=== PATIENT | female | born 1980 | race Hispanic/Latino ===

== ENCOUNTER 2017-02-28 22:17 | Inpatient (IN) | payer OTHER ==
--- NOTE | 2017-02-28 22:37 | C.PDOC ---
History Of Present Illness <Catalino Cottrell - Last Filed: 03/01/17 00:21> <Son Oneill - Last Filed: 03/01/17 03:53> 36 year old female presents to the ER via EMS after reportedly being found inside someone else's residence. Patient states she has only slept 6 hour out of the last 4 days which she says is because she has been volunteering a [employer] and taking care of her . Patient reports she has a Hx of depression and anxiety which she thinks affects her. Denies ETOH or substance abuse. (Catalino Cottrell) History Per: Patient History/Exam Limitations: no limitations Onset/Duration Of Symptoms: Days Current Symptoms Are (Timing): Still Present Suicide/Self Injury Attempted (Context): None Modifying Factor(s): None Associated Symptoms: denies: Suicidal Thoughts, Suicidal Plan Involuntary Hold By: None Recent travel outside of the [place]: No <Catalino Cottrell - Last Filed: 03/01/17 00:21> <Son Oneill - Last Filed: 03/01/17 03:53> Time Seen by Provider: 02/28/17 22:27 Chief Complaint (Nursing): Psychiatric Evaluation Past Medical History Reviewed: Historical Data, Nursing Documentation, Vital Signs - Medical History PMH: Anxiety, Depression Surgical History: No Surg Hx Family History: States: Unknown Family Hx - Social History Hx Alcohol Use: No Hx Substance Use: No <Catalino Cottrell - Last Filed: 03/01/17 00:21> Vital Signs: Last Vital Signs Temp 97.9 F 02/28/17 22:24 Pulse 96 H 02/28/17 22:24 Resp 16 02/28/17 22:24 BP 148/84 02/28/17 22:24 Pulse Ox 96 03/01/17 00:21 Review Of Systems Constitutional: Negative for: Fever, Chills Cardiovascular: Negative for: Chest Pain, Palpitations Gastrointestinal: Negative for: Nausea, Vomiting, Abdominal Pain Neurological: Negative for: Weakness, Numbness Psych: Positive for: Other (Disorganized thoughts) <Catalino Cottrell - Last Filed: 03/01/17 00:21> Physical Exam - Physical Exam Appears: Non-toxic, No Acute Distress, Other (Disorganized thoughts) Skin: Normal Color, Warm, Dry Head: Atraumatic, Normacephalic Eye(s): bilateral: Normal Inspection Oral Mucosa: Moist Chest: Symmetrical, No Tenderness Cardiovascular: Rhythm Regular Respiratory: Normal Breath Sounds, No Rales, No Rhonchi, No Wheezing Gastrointestinal/Abdominal: Soft, No Tenderness Neurological/Psych: Oriented x3, Normal Speech, Other (No focal deficits) <Catalino Cottrell P - Last Filed: 03/01/17 00:21> ED Course And Treatment - Laboratory Results Result Diagrams: 02/28/17 22:50 02/28/17 22:50 ECG: Interpreted By Me, Viewed By Me ECG Rhythm: Sinus Rhythm ECG Interpretation: Normal Rate From EC O2 Sat by Pulse Oximetry: 96 (Room air) Pulse Ox Interpretation: Normal <Catalino Cottrell - Last Filed: 03/01/17 00:21> - Laboratory Results Result Diagrams: 02/28/17 22:50 02/28/17 22:50 <Son Oneill - Last Filed: 03/01/17 03:53> Disposition <Catalino Cottrell P - Last Filed: 03/01/17 00:21> Discussed With : Ameena Cole Comment: accepted the pt on her service and took over the care at3:52 AM Doctor Will See Patient In The: Hospital Counseled Patient/Family Regarding: Studies Performed, Diagnosis - Disposition Disposition Time: 01:00 - POA Present On Arrival: Poor Glycemic Control <Son Oneill - Last Filed: 03/01/17 03:53> - Disposition Disposition: HOSPITALIZED Condition: FAIR Forms: Easiaid ([place]) - Clinical Impression Clinical Impression: Bipolar 1 disorder with moderate haylee - Scribe Statement The provider has reviewed the documentation as recorded by the Scribe <Catalino Cottrell P - Last Filed: 03/01/17 00:21> <Son Oneill - Last Filed: 03/01/17 03:53> - Scribe Statement Shahriar Mauricio All medical record entries made by the Scribe were at my direction and personally dictated by me. I have reviewed the chart and agree that the record accurately reflects my personal performance of the history, physical exam, medical decision making, and the department course for this patient. I have also personally directed, reviewed, and agree with the discharge instructions and disposition. (Catalino Cottrell) Decision To Admit <aCtalino Cottrell - Last Filed: 03/01/17 00:21> - Pt Status Changed To: Hospital Disposition Of: Inpatient - Admit Certification Admit to Inpatient:: After my assessment, the patient will require hospitalization for at least two midnights. This is because of the severity of symptoms shown, intensity of services needed, and/or the medical risk in this patient being treated as an outpatient. - InPatient: Physician Admission Certification: I certify that this patient requires 2 or more midnights of care for the following reason:: After my assessment, the patient will require hospitalization for at least two midnights. This is because of the severity of symptoms shown, intensity of services needed, and/or the medical risk in this patient being treated as an outpatient. - . Bed Request Type: Psychiatry Admitting Physician: Ameena Cole <Son Oneill - Last Filed: 03/01/17 03:53> - . Patient Diagnosis: Bipolar 1 disorder with moderate haylee
[2017-02-28 22:54] LABS: BASO % 0.6 % (0.0-2.0); EOS % 0.5 % (0.0-4.0); HEMATOCRIT 30.2 % (34.0-47.0); LYMPH # 1.6 K/uL (1.0-4.3); LYMPH % 26.2 % (20.0-40.0); MEAN CELL VOLUME 77.6 fL (81.0-99.0); MEAN CORPUSCULAR HEMOGLOBIN 24.5 pg (27.0-31.0); MEAN CORPUSCULAR HGB CONC 31.6 g/dL (33.0-37.0); MEAN PLATELET VOLUME 8.1 fL (7.2-11.7); MONO # 0.6 K/uL (0.0-0.8); MONO % 10.4 % (0.0-10.0); NRBC % 0.1 % (0.0-2.0); RED CELL DISTRIBUTION WIDTH 17.9 % (11.5-14.5)
[2017-02-28 23:08] LABS: ALB/GLOB RATIO 2.3 (1.0-2.1); ALCOHOL SERUM < 10 mg/dl (0-10); ALKALINE PHOSPHATASE 64 U/L (38-126); ALT/SGPT 34 U/L (9-52); AST/SGOT 44 U/L (14-36); BILIRUBIN,TOTAL 1.2 mg/dL (0.2-1.3); BLOOD UREA NITROGEN 19 mg/dL (7-17); CALCIUM 8.6 mg/dl (8.6-10.4); CARBON DIOXIDE 25 mmol/L (22-30); CHLORIDE 99 mmol/L (98-107); GFR AFRICAN-AMERICAN > 60; GLUCOSE,RANDOM 111 mg/dL (65-105); POTASSIUM 3.2 mmol/L (3.6-5.2); SODIUM 134 mmol/L (132-148); TOTAL PROTEIN 6.3 g/dL (6.3-8.3)
[2017-03-01 02:23] LABS: RBC URINE < 1 /hpf (0-3); URINE BILIRUBIN NEGATIVE (NEGATIVE); URINE BLOOD NEGATIVE (NEGATIVE); URINE COLOR Yellow (YELLOW); URINE GLUCOSE (UA) NORMAL (Normal); URINE HYALINE CAST 0-2 /lpf (0-2); URINE KETONE 2+ mg/dL (NEGATIVE); URINE LEUKOCYTE ESTERASE NEG Leu/uL (Negative); URINE PROTEIN NEGATIVE (NEGATIVE); URINE UROBILINOGEN NORMAL mg/dL (0.2-1.0); WBC URINE 1 /hpf (0-5)
[2017-03-01 03:58] VITALS: O2SAT 98
--- NOTE | 2017-03-01 06:11 | PCM.BM ---
<Santos Page - Last Filed: 03/01/17 06:09> Treatment Plan Problems - Problems identified on initial assessmt Bipolar D/O Date Initiated: 03/01/17 Time Initiated: 06:10 Status: Active Depression Date Initiated: 03/01/17 Time Initiated: 06:10 Status: Active Treatment assets and liabiliti Patient Assests: cooperative, motivated, ADL independent Patient Liabilities: poor support system, relationship conflicts - Milieu Protocol Maintain good personal hygiene: daily Encourage regular showers, daily Remind patient to perform daily oral care, daily Assist patient to perform ADL's Conduct patient checks and document Observation sheet: Q15 minutes Maintain personal safety: every shift Educate patient to report safety concerns to staff, every shift Monitor environment for contraband/sharps Medication safety: Monitor for expected outcome, potential side effects: every shift, Assess barriers to learning: every shift, Assess readiness for medication education: every shift <Olga Hines - Last Filed: 03/03/17 11:29> Family Contact Family involvement: Family/SO is involved Family contact: Patient agrees to contact Family contact name: Javi Hernandez-sister Family contacted how many times per week?: 1 - Goals for Treatment Patient goals for treatment: "I want to see a therapist." Discharge/Continuing Care - Education Needs Education Needs: Patient Medication, Patient Coping Skills - Discharge Discharge Criteria: Tolerates medication w/o severe side effects, Reduction of target symptoms Discharge to:: Home, With Family - Treatment Team Participation Discussed with Family/SO: No Was Patient/Family/SO present at Treatment Team Meeting: Yes <Quinton Wilde - Last Filed: 03/03/17 11:30> - Diagnosis (1) Bipolar affective, mixed, severe Status: Acute Interventions: 03/03/17 11:30 * Assess/adjust medications daily and /or as needed * See patient on an individual basis 7x/week to assess level of manic behaviors and stability * Discuss risks, benefits, side effects and alternatives of medications *
[2017-03-01 07:24] VITALS: TEMP 98
--- NOTE | 2017-03-01 18:42 | PCM.PSYCH ---
Initial Psychiatric Evaluation - Initial Psychiatric Evaluation Type of Admission: Voluntary Legal Status: Capacity Chief Complaint (in patient's own words): "I can't sleep." History of Present Illness and Precipitating Events: Pt is a 36 yo female pphx of bipolar depression d/o was bib sister for psych eval and admitted for manic symptoms. Pt has disorganized thought process, as well as appears internally preoccupied and responding to stimuli. She reported happy to irritable mood for 5 days, expansive mood, high level of energy, sexual indiscretion involved in unprotected sex, not sleeping at night time for last 5 days, not eating, cleaning house and then going outside and found sleeping in someone basement stairs, increase in distraction, and flight of ideas, talkative, racing thoughts, involved in volunteer work in [employer], anger issues, screaming on and kicking wall. Pt stated that was upset on her and conflict. Pt was claiming that had mental break. She reproted that she missed few work days due to involvement in other activities. She reported that she is not compliant with her meds Effexor XR 300 mg po daily and Lamictal. The pt claimed that had hide her meds. She stated that she has had some skin bumps and infection, but she is not taking her meds. No hx of legal involvement. Pt was not able to give information about her and stated that he is not a real person and he had been changed with some other person. Pt denies depressive symptoms such as depressed mood, anhedonia, poor concentration, suicidal or homicidal ideation intent or plan, denies feeling of worthlessness, poor self-esteem, helplessness or hopelessness in future, decrease appetite or insomnia. Denies any OCD symptoms, Panic attack symptoms. Denies excessive anxiety for last 6 months, restlessness, easily fatigued, difficulty in concentration, irritability, muscle tension, trouble in sleep. Pt denies exposure to actual trauma, or threatened or serious injury or sexual violence in past, denies flash back memories, hypervigilance, anxiety, easy startling, difficulty in focusing, sleep disturbance, nightmares, dissociative reactions to surrounding, persistence avoidance from others, isolation, avoidance of bad memories. Current Medications: Active Medications Generic Name Dose Route Start Last Admin Trade Name Freq PRN Reason Stop Dose Admin Divalproex Sodium 250 mg 03/01/17 14:17 03/01/17 17:24 Depakote Er PO 250 mg BID MAYTE Administration Hydroxyzine HCl 25 mg 03/01/17 04:02 Atarax PO Q6 PRN Anxiety Ibuprofen 400 mg 03/01/17 04:02 Motrin Tab PO Q6 PRN Pain, moderate (4-7) Lorazepam 2 mg 03/01/17 06:19 Ativan IM Q6H PRN catatonia, severe agitation Lorazepam 2 mg 03/01/17 06:30 Ativan PO Q8H PRN severe anxiety,agitation Risperidone 0.5 mg 03/01/17 14:15 03/01/17 17:24 Risperdal Tab PO 0.5 mg BID MAYTE Administration Past Psychiatric History - Past Psychiatric History Previous Treatment History: None Prior Professional Help: out pt clinic Prior Psychiatric Treatment: Effexor XR 300 MG LAMICTAL DOSE? At what hospital: DENIED Nature of Treatment: OUTPT Explanation of prior treatment: NON COMPLIANCE History of Abuse: DENIED History of ETOH/Drug Use: NONE KNOWN Pt is unreliable b/c she denied etoh use later stated she drinks sometimes. Denied other illicit drugs Pertinent Medical Hx (Current Medical&Sleep Prob, Allergies): Allergies Allergy/AdvReac Type Severity Reaction Status Date / Time No Known Allergies Allergy Verified 02/28/17 22:24 No Known Home Med 02/28/17 Scoliosis, foot pain, bursitis of shoulder and leg Review of Systems - Review of Systems Systems not reviewed;Unavailable: Other (please see HPI) All systems: reviewed and no additional remarkable complaints except (psych issues) - Constitutional Constitutional: Other (denied) - EENT Eyes: UNREMARKABLE Ears: UNREMARKABLE Nose/Mouth/Throat: As Per HPI Additional comments: She has small bump at the corner of lip - Breasts Breasts: Other (pt refused) - Cardiovascular Cardiovascular: UNREMARKABLE - Respiratory Respiratory: UNREMARKABLE - Gastrointestinal Gastrointestinal: UNREMARKABLE - Genitourinary Genitourinary: UNREMARKABLE - Reproductive: Female Reproductive:Female: UNREMARKABLE - Musculoskeletal Musculoskeletal: Other - Endocrine Endocrine: UNREMARKABLE - Hematologic/Lymphatic Hematologic: UNREMARKABLE Mental Status Examination - Personal Presentation Personal Presentation: Looks younger than stated age, Dressed inappropriate to season (pt was lying naked covering herself with the blanket. Pt was redirected to wear gowns) Additional comments: She appeared internally preoccupied and responding to stimuli - Affect Affect: Constricted - Motor Activity Motor Activity: Other - Reliability in Providing Information Reliability in Providing Information: Poor, due to alteration in thoughts - Speech Speech: Disorganized - Mood Mood: Other (irritable) - Formal Thought Process Formal Thought Process: Paranoia, Loosening of associations, Flight of ideas, Circumstantial - Hallucinations/Delusions Delusions: Persecution - Obsessions/Compulsions Obsessions: No Compulsions: No - Cognitive Functions Orientation: Person, Place, Situation, Time Sensorium: Alert Attention/Concentration: Easily distracted Abstract Thinking: [place] Estimate of Intelligence: Average Judgement: Imparied, as evidence by: Poor judgement, Imparied, as evidence by: Lack of insight into illness Memory: Recent intact, as evidence by: Ability to recall events of the day - Risk Risk: Other (denied SI, HI, intent or plan) - Strength & Assets Inventory Strength & Assets Inventory: Family support, Education, Employment status, Employment history, Cooperative - Limitations Limitations: Other (relational issues with and mental illness) DSM 5 DX - DSM 5 DSM 5 Diagnosis: Bipolar 1 D/O MRE MANIC episode, severe, with psychotic features - Recommended/Plan of Treatment Treatment Recommendations and Plan of Treatment: Start Risperdal 0.5 mg po BID for mood stabilization and disorganized behaviora. Will increase the dose according to her response. Start Depakote 250 mg po BID for mood stabilization Medication benefits and s/e and alternative meds Abilfy was offered However, pt stated that Abilify she had tried in the past and was no effective and seroquel made had zoombie. Pt verbalized understanding the s/e of meds and agreed with the starting of meds. Monitor vitals. Therapy in milieu. Will obtain collateral information from the . Recommend to attend groups and individual therapy. Supportive therapy provided. Projected ELOS: 7 days Prognosis: fair if compliant with meds and treatment Discharge Plan and Discharge Criteria: once pt is stabilized on meds recommend opd f/u - Smoking Cessation Smoking Cessation Initiated: No
--- NOTE | 2017-03-02 16:58 | PCM.PYCHPN ---
Psychiatric Progress Note - Psychiatric Progress Note Patient seen today, length of contact: 16 minutes Patient Chief Complaint: "I'm feeling calm." Problems Identified/Issues Discussed: Patient was seen and evaluated, chart reviewed and nurse input received. Pt has had no issue last night. Case was discussed with the nurse. Pt reports that she is feeling "Calm." She reported improvement in her mood, she stated that she had good sleep last night. She still believe that her is not real. She needs more time to stabilize on meds. She is compliant with meds and denied s/e DSM 5 Symptoms Update: Bipolar 1 d/o, mre manic with psychotic features. Medication Change: Yes (start Risperdal 0.5 mg po BID) Medical Record Reviewed: Yes Mental Status Examination - Cognitive Function Orientation: Person, Place, Situation, Time Memory: Intact Attention: WNL Concentration: WNL Association: WNL Fund of Knowledge: WN Decription of patient's judgement and insights: fair/fair. Pt is calm and cooperative - Mood Mood: Euphoric - Affect Affect: Constricted - Speech Speech: Appropriate - Formal Thought Process Formal Thought Process: Paranoia, Loosening of associations, Flight of ideas, Circumstantial - Suicidal Ideation Suicidal Ideation: No - Homicidal Ideation Homicidal Ideation: No Goal/Treatment Plan - Goal/Treatment Plan Progress Toward Problem(s) and Goals/Treatment Plan: Continue Risperdal 0.5 mg po BID for mood stabilization and disorganized behaviora. Will increase the dose according to her response. Continue Depakote 250 mg po BID for mood stabilization Medication benefits and s/e and alternative meds Abilfy was offered However, pt stated that Abilify she had tried in the past and was no effective and seroquel made had zoombie. Pt verbalized understanding the s/e of meds and agreed with the starting of meds. Monitor vitals. Therapy in milieu. Will obtain collateral information from the . Recommend to attend groups and individual therapy. Supportive therapy provided. Estimated Date of D/C: 03/07/17
[2017-03-03] MEDS ORDERED: Divalproex 500 mg ER Tab PO SCH (10:05)
--- NOTE | 2017-03-03 10:05 | PCM.PYCHPN ---
Psychiatric Progress Note - Psychiatric Progress Note Patient seen today, length of contact: 16 minutes Patient Chief Complaint: "I am tired" Problems Identified/Issues Discussed: The patient was seen, chart reviewed, case discussed with staff. This is a 36 year old female who lives with her . She is currently employed. She had no events overnight. She reports poor sleep last night with worsening flight of ideas. She reports she is feeling exhausted. She reports continued feelings of depression, but denies suicidal ideations, homicidal ideations, auditory hallucinations, and visual hallucinations. Symptoms are improving but needs more time to stabilize. After care discussed, support and psychoeducation given. Past psychiatric history: follows up with outpatient psychiatry, last visit was months ago Past medical history: IT band syndrome Medication Change: Yes (start Risperdal 0.5 mg po BID) Medical Record Reviewed: Yes Mental Status Examination - Cognitive Function Orientation: Person, Place, Situation, Time Memory: Intact Attention: WNL Concentration: WNL Association: Loose Fund of Knowledge: Poor - Mood Mood: Anxious, Euphoric - Affect Affect: Constricted - Speech Speech: Appropriate - Formal Thought Process Formal Thought Process: Paranoia, Loosening of associations, Flight of ideas, Circumstantial - Suicidal Ideation Suicidal Ideation: No - Homicidal Ideation Homicidal Ideation: No Goal/Treatment Plan - Goal/Treatment Plan Need for Continued Stay: Remain at risks for inpatient hospitalization, Discharge may exacerbated symptoms Progress Toward Problem(s) and Goals/Treatment Plan: Bipolar 1 D/O MRE MANIC episode, severe, with psychotic features Increase Risperdal to 1 mg po BID for mood stabilization and disorganized behavior. Increase Depakote to 500 mg po BID for mood stabilization Monitor vitals. Therapy in milieu. Will obtain collateral information from the . Recommend to attend groups and individual therapy. Supportive therapy provided. Estimated Date of D/C: 03/07/17 - Smoking Cessation Smoking Cessation Initiated: No
[2017-03-03] MEDS: Divalproex 500 mg ER Tab PO SCH ×2 (11:00→17:44)
--- NOTE | 2017-03-03 17:17 | CARD ---
APPROVED REPORT EKG Measurement Heart [id number] <Conclusion> Normal sinus rhythm Normal ECG
[2017-03-04] MEDS ORDERED: Influenza Vaccine 60 mcg/0.5 mL SYR (4YR UP) IM ONE (10:00)
[2017-03-04] MEDS: Divalproex 500 mg ER Tab PO SCH ×2 (10:11→17:19)
[2017-03-04] MEDS ORDERED: Midazolam 2 MG/2 ML VIAL ONE (10:49)
--- NOTE | 2017-03-04 10:55 | PCM.PYCHPN ---
Psychiatric Progress Note - Psychiatric Progress Note Patient seen today, length of contact: 16 minutes Patient Chief Complaint: "I am feeling much better.' Medical Problems: The patient was seen, chart reviewed, case discussed with staff. Pt reports improvement in her anxiety and mood. As per her, her brain is less spinning as that of yesterday. She reports improvement in her sleep and appetite. She had no events overnight. She reports her depression is getting better, however, she denies suicidal ideation, homicidal ideation, auditory hallucinations, and visual hallucinations. Symptoms are improving but needs more time to stabilize. After care discussed, support and psychoeducation given. Medication Change: Yes (start Risperdal 0.5 mg po BID) Medical Record Reviewed: Yes Mental Status Examination - Cognitive Function Orientation: Person, Place, Situation, Time Memory: Intact Attention: WNL Concentration: Poor Association: WNL Fund of Knowledge: WNL - Mood Mood: Euphoric - Affect Affect: Constricted - Speech Speech: Appropriate - Formal Thought Process Formal Thought Process: Flight of ideas - Suicidal Ideation Suicidal Ideation: No - Homicidal Ideation Homicidal Ideation: No Goal/Treatment Plan - Goal/Treatment Plan Need for Continued Stay: Remain at risks for inpatient hospitalization, Discharge may exacerbated symptoms Progress Toward Problem(s) and Goals/Treatment Plan: Bipolar 1 D/O MRE MANIC episode, severe, with psychotic features CBT Psychoeducation Increase Risperdal to 1 mg po BID for mood stabilization and disorganized behavior. Increase Depakote to 500 mg po BID for mood stabilization Monitor vitals. Therapy in milieu. Will obtain collateral information from the . Recommend to attend groups and individual therapy. Supportive therapy provided. Estimated Date of D/C: 03/07/17 - Smoking Cessation Smoking Cessation Initiated: No
[2017-03-04 16:03] VITALS: BP 112/51; PULSE 102; RESP 19
--- NOTE | 2017-03-05 09:55 | PCM.PYCHDC ---
Mental Status Examination - Mental Status Examination Orientation: Person, Place, Situation, Time Memory: Intact Mood: Neutral Affect: Constricted Speech: Soft Attention: WNL Concentration: WNL Association: WNL Fund of Knowledge: WNL Formal Thought Process: No Impairment Description of patient's judgement and insight: good, fair Psychotic Thoughts and Behaviors: denies any AVH Suicidal Ideation: No Current Homicidal Ideation?: No Discharge Summary - Discharge Note Reason for Hospitalization: Pt is a 36 yo female pphx of bipolar depression d/o was bib sister for psych eval and admitted for manic symptoms. Pt has disorganized thought process, as well as appears internally preoccupied and responding to stimuli. She reported happy to irritable mood for 5 days, expansive mood, high level of energy, sexual indiscretion involved in unprotected sex, not sleeping at night time for last 5 days, not eating, cleaning house and then going outside and found sleeping in someone basement stairs, increase in distraction, and flight of ideas, talkative, racing thoughts, involved in volunteer work in [employer], anger issues, screaming on and kicking wall. Pt stated that was upset on her and conflict. Pt was claiming that had mental break. She reproted that she missed few work days due to involvement in other activities. She reported that she is not compliant with her meds Effexor XR 300 mg po daily and Lamictal. The pt claimed that had hide her meds. She stated that she has had some skin bumps and infection, but she is not taking her meds. No hx of legal involvement. Pt was not able to give information about her and stated that he is not a real person and he had been changed with some other person. Pt denies depressive symptoms such as depressed mood, anhedonia, poor concentration, suicidal or homicidal ideation intent or plan, denies feeling of worthlessness, poor self-esteem, helplessness or hopelessness in future, decrease appetite or insomnia. Denies any OCD symptoms, Panic attack symptoms. Denies excessive anxiety for last 6 months, restlessness, easily fatigued, difficulty in concentration, irritability, muscle tension, trouble in sleep. Pt denies exposure to actual trauma, or threatened or serious injury or sexual violence in past, denies flash back memories, hypervigilance, anxiety, easy startling, difficulty in focusing, sleep disturbance, nightmares, dissociative reactions to surrounding, persistence avoidance from others, isolation, avoidance of bad memories. Psychiatric History (includes Medical, Family, Personal Hx): OUTPT Laboratory Data: Abnormal Lab Results 03/05/17 07:55 Valproic Acid 91.2 Consultations:: List each consultation separately and include: 1. Reason for request. 2. Findings. 3. Follow-up Summary of Hospital Course include:: 1. Description of specific treatment plan utilized for patients during their course of treatmen. 2. Summarize the time- course for resolution of acute symptoms and/or regressed behaviors. 3. Describe issues identified and worked on during hospitalization. 4. Describe medication utilized. 5. Describe medical problems identified and treated. 6. Reassessment of suicide risk Summary of Hospital Course: During the course of her stay, patient (pt) started progressively improving and no longer remained irritable, depressed, and suicidal. Her mood and anxiety were improved and she started attending groups and meetings and started socializing. Patient denied any feelings of hopelessness, helplessness, and worthlessness, denied any problem with the sleep or appetite, denied suicidal ideation or homicidal ideation. Pt denied any auditory or visual hallucinations. Some changes were made in her current medications and patient was discharged on following medications. She tolerated these medications very well and denied any side effects. She was discharged to [facility]/Private psychiatrist. - Diagnosis (1) Bipolar affective, mixed, severe Status: Acute - Final Diagnosis (DSM 5) Condition upon Discharge: FAIR DSM 5: Bipolar 1 D/O MRE MANIC episode, severe, with psychotic features Disposition: HOME/ ROUTINE Follow-up Treatment Plan: Education: Pt was educated and counseled about the risks and benefits of taking and not taking medications. Pt was educated and counseled about the risks of drinking and abusing drugs. Pt was educated and counseled to go to the ER or call 911 if pt develop suicidal ideation or homicidal ideation, worsening of symptoms or severe side effects of the meds. Prescriptions/Medication Reconciliation: Benztropine [Cogentin] 1 mg PO BID #60 tab Divalproex [Depakote ER] 250 mg PO DAILY #30 ter Divalproex [Depakote ER] 500 mg PO HS #30 ter risperiDONE [RisperDAL Tab] 1 mg PO BID #60 tab - Smoking Cessation Smoking Cessation Medication prescribed: No - Antipsychotic Medications Pt discharged on 2 or more routine antipsychotic medications: No
[2017-03-05] MEDS ORDERED: Divalproex 500 mg ER Tab PO SCH (22:00)
== END 2017-03-05 12:25 | disposition home or self-care (01) | DRG 885 ==
LOC: C.ER 22:17 → C.5E 03-01 03:51
PROVIDERS: ADMIT Psychiatry & Neurology Psychiatry; ATTEND Psychiatry & Neurology Psychiatry
PROC: GZHZZZZ Group Psychotherapy (ICD-10-PCS; principal; 2017-03-01)
PROC: GZ58ZZZ Individual Psychotherapy, Cognitive-Behavioral (ICD-10-PCS; 2017-03-01)
PROC: GZ56ZZZ Individual Psychotherapy, Supportive (ICD-10-PCS; 2017-03-01)
DX: F31.2 Bipolar disorder, current episode manic severe with psychotic features (principal)

== ENCOUNTER 2017-04-30 04:15 | Emergency (ER) | payer OTHER ==
[2017-04-30 04:47] VITALS: O2SAT 98
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
[2017-04-30 06:53] VITALS: BP 118/76; PULSE 84; RESP 16; TEMP 98
== END 2017-04-30 06:53 | disposition home or self-care (01) ==
LOC: C.ER 04:15
DX: Z00.00 Encounter for general adult medical examination without abnormal findings (principal)